=== PATIENT | female | born 1975 | race Caucasian/White ===

== ENCOUNTER 2020-08-14 08:53 | Outpatient (CLI) | payer BC, SELFPAY ==
--- NOTE | 2020-08-14 08:55 | MM_ITS ---
WS: [id number] BILATERAL DIGITAL SCREENING MAMMOGRAPHY WITH CAD CLINICAL INFORMATION: SCREENING HISTORY: Screening mammogram. No current complaints. COMPARISON: None. TECHNIQUE: Bilateral CC and MLO views. FINDINGS: The breasts are composed of heterogeneous fibroglandular density tissue, which can limit the detectio n of small underlying mass lesions. No suspicious mass, asymmetry, calcifications, or architectural d istortion. No evidence of malignancy. Lucent centered calcifications left breast. MM/[place] [id number] IMPRESSION: BI-RADS: 2-Benign FOLLOW UP: 1 Year Follow-up Recommend return to annual screening mammography.
== END 2020-08-14 08:54 | disposition home or self-care (01) ==
LOC: RADSHAW 08:53
PROVIDERS: PCP Nurse Practitioner Family; Visit Provider Nurse Practitioner Family
DX: Z12.31 Encounter for screening mammogram for malignant neoplasm of breast (principal)
CPT/HCPCS: 77067

== ENCOUNTER → 2021-11-10 12:05 | Outpatient (BNVA) | payer BC, SELFPAY | PROVIDERS: PCP Nurse Practitioner Family; Visit Provider Nurse Practitioner Family | DX: Z11.52 Encounter for screening for COVID-19 (principal); Z20.822 Contact with and (suspected) exposure to COVID-19 | CPT/HCPCS: 87635 ==

== ENCOUNTER 2022-01-15 12:57 | Outpatient (CLI) | payer BC, SELFPAY ==
--- NOTE | 2022-01-15 13:09 | MM_ITS ---
WS: [id number] SCREENING DIGITAL MAMMOGRAM WITH CAD HISTORY: SCREENING COMPARISON: 08/14/2020 Bilateral CC and MLO views submitted. Computer aided detection analyzed. Breast composition: The breasts are heterogeneously dense, which may obscure small masses. Small circ umscribed 13 mm mass in the medial LEFT breast at a middle depth. This may be the mass also on the pr ior examination along the inferior breast. The mass seen on the CC projection is not seen on the prio r study. This needs to be further evaluated and localized. Negative RIGHT breast. MM/[place] [id number] IMPRESSION: BI-RADS: 0-Incomplete: Need additional imaging evaluation FOLLOW UP: Need Additional Imaging LEFT breast: Spot compression views (CC and MLO). True ML. Ultrasound to follow if abnormality persists.
== END 2022-01-15 12:58 | disposition home or self-care (01) ==
PROVIDERS: PCP Nurse Practitioner Family; Visit Provider Nurse Practitioner Family
DX: Z12.31 Encounter for screening mammogram for malignant neoplasm of breast (principal)
CPT/HCPCS: 77067

== ENCOUNTER 2022-02-13 09:40 | Outpatient (CLI) | payer BC, SELFPAY ==
--- NOTE | 2022-02-13 10:10 | MM_ITS ---
WS: [id number] ADDITIONAL VIEWS LEFT MAMMOGRAM 3-D. LEFT BREAST ULTRASOUND HISTORY: ABNORMAL MAMMOGRAM COMPARISON: 01/15/2022, 08/14/2020, LEFT MAMMOGRAM: Spot compression views and true ML. Ovoid nodule measures 12 x 10 mm 6:00 axis of the LEFT breast. This isn't present on prior studies. I suspect there may be an additional nodule also noted along the 6:00 axis which continues to be obscu red. LEFT BREAST ULTRASOUND 2-D and color Doppler imaging submitted. At 6:00 LEFT breast, 3 cm from the nipple is an ovoid hypoechoic mass measuring 1.5 x 0.6 x 0.8 cm. T his corresponds to the nodule that has been noted on multiple prior examinations and stable. There is an additional hypoechoic nodule at 6:00 measuring 8 x 3 x 4 mm which may be a small cyst or addition al fibroadenoma. Small lymph node versus fibroadenoma at 3:00 measures 7 x 4 x 7 mm. There are no peyton picious masses for which biopsy is to be recommended at this time. MM/[place] [id number] IMPRESSION: BI-RADS: 2-Benign FOLLOW UP: 1 Year Follow-up
== END 2022-02-13 09:41 | disposition home or self-care (01) ==
LOC: RADSHAW 09:44
PROVIDERS: PCP Nurse Practitioner Family; Visit Provider Nurse Practitioner Family
DX: R92.8 Other abnormal and inconclusive findings on diagnostic imaging of breast (principal); N63.25 Unspecified lump in the left breast, overlapping quadrants
CPT/HCPCS: 76642; 77061

== ENCOUNTER 2023-07-01 15:59 | Outpatient (CLI) | payer BC, SELFPAY ==
--- NOTE | 2023-07-01 16:21 | XRR_ITS ---
PROCEDURE INFORMATION: Exam: XR Chest Exam date and time: 07/01/2023 4:31 PM Age: 48 years old Clinical indication: Cough TECHNIQUE: Imaging protocol: Radiologic exam of the chest. Views: 2 views. COMPARISON: No relevant prior studies available. FINDINGS: Lungs: No acute airspace disease. Pleural spaces: No pleural effusion. Heart/Mediastinum: Normal configuration of the heart. Bones/joints: Marginal osteophytes. XR/XR chest 2V* [id number] IMPRESSION: No acute airspace or pleural disease.
== END 2023-07-01 16:00 | disposition home or self-care (01) ==
PROVIDERS: PCP Nurse Practitioner Family; Visit Provider Nurse Practitioner Family
DX: R05.9 Cough, unspecified (principal)
CPT/HCPCS: 71046

== ENCOUNTER 2024-02-23 15:18 | Outpatient (CLI) | payer BC, SELFPAY ==
--- NOTE | 2024-02-23 15:43 | MM_ITS ---
WS: [id number] BILATERAL 3D TOMOSYNTHESIS DIGITAL SCREENING MAMMOGRAPHY WITH CAD CLINICAL INFORMATION: SCREEN HISTORY: Screening mammogram. No current complaints. COMPARISON: 2021 TECHNIQUE: Bilateral CC and MLO views. FINDINGS: The breasts are composed of heterogeneous fibroglandular density tissue, which can limit the detectio n of small underlying mass lesions. New 1.6 cm nodule mid LEFT breast best seen on the cc view in the central LEFT breast. Recommend LEFT breast diagnostic mammography and ultrasound. Additional 1.5 cm nodule inner quadrant LEFT breast laterally appears similar to previous on mammogra phy Lucent centered calcification LEFT breast. IMPRESSION: MM/[place] [id number] BI-RADS: 0-Incomplete: Need additional imaging evaluation FOLLOW UP: Need Additional Imaging Recommend LEFT breast diagnostic mammography and ultrasound. Ultrasound should be performed of the LEFT breast inner quadrant and 6 o'clock position LEFT breast
== END 2024-02-23 15:19 | disposition home or self-care (01) ==
LOC: RAD 15:18
PROVIDERS: PCP Nurse Practitioner Family; Visit Provider Nurse Practitioner Family
DX: Z12.31 Encounter for screening mammogram for malignant neoplasm of breast (principal); N63.25 Unspecified lump in the left breast, overlapping quadrants; N63.20 Unspecified lump in the left breast, unspecified quadrant
CPT/HCPCS: 77063; 77067

== ENCOUNTER 2025-02-15 12:23 | Outpatient (CLI) | payer OTHER, SELFPAY ==
--- NOTE | 2025-02-15 12:28 | US_ITS ---
WS: [id number] BILATERAL 3D TOMOSYNTHESIS DIGITAL DIAGNOSTIC MAMMOGRAPHY WITH CAD CLINICAL INFORMATION: ABNORMAL MAMMOGRAM HISTORY: Additional views LEFT breast COMPARISON: 2023 TECHNIQUE: Bilateral CC, MLO, and ML views. FINDINGS: Scattered fibroglandular densities bilaterally. Again seen is a stable nodule lower inner LEFT breast measuring 15 mm. Previously described 16 mm nodule has decreased in size today and is only faintly visualized measuring approximately 10mm. Ultrasound is pending. Unremarkable RIGHT breast. ULTRASOUND BREAST LEFT TECHNIQUE: Ultrasound left breast focused area of concern. CLINICAL INFORMATION: ABNORMAL MAMMOGRAM COMPARISON: 2021 FINDINGS: Ultrasound lower inner quadrant LEFT breast and central LEFT breast. Incidental lymph node is identified at the 12 o'clock position 2 cm from the nipple measuring 9 x 9 mm. In addition, tiny incidental cyst at the 10 o'clock position 1 cm from the nipple measuring 4 x 3 mm. No other suspicious findings. No lesions to target for biopsy. US/US breast LT limited* [id number] IMPRESSION: DENSITY: There are scattered areas of fibroglandular density. BI-RADS: 2 - Benign. FOLLOW UP: 1 Year Follow-up Recommend return to annual screening mammography.
== END 2025-02-15 12:24 | disposition home or self-care (01) ==
LOC: RAD 12:23
PROVIDERS: PCP Nurse Practitioner Family; Visit Provider Nurse Practitioner Family
DX: R92.8 Other abnormal and inconclusive findings on diagnostic imaging of breast (principal); R92.323 Mammographic fibroglandular density, bilateral breasts; N63.24 Unspecified lump in the left breast, lower inner quadrant; R59.0 Localized enlarged lymph nodes
CPT/HCPCS: 76642; 77062; G0279